=== PATIENT | female | born 1950 | race Hispanic/Latino ===

== ENCOUNTER 2024-12-07 12:43 | Emergency (ER) | payer MEDICARE ==
[~2024-12-07] VITALS: Ht 152.4 cm; Wt 65.8 kg
[2024-12-07 12:52] VITALS: TEMP 98.3
[2024-12-07 13:32] LABS: CORONAVIRUS COVID-19 AG NEGATIVE (NEGATIVE); INFLUENZA A AG NEGATIVE (NEGATIVE); INFLUENZA B AG NEGATIVE (NEGATIVE)
[2024-12-07] MEDS ORDERED: BENZONATATE100 MG PO (15:54)
[2024-12-07 15:59] VITALS: PULSE 88; RESP 18; O2SAT 97
== END 2024-12-07 16:02 | disposition home or self-care (01) ==
LOC: ER 15:57
DX: R05.9 Cough, unspecified (principal); R51.9 Headache, unspecified; I10 Essential (primary) hypertension; I25.10 Atherosclerotic heart disease of native coronary artery without angina pectoris; Z11.52 Encounter for screening for COVID-19
CPT/HCPCS: 71045; 99283